=== PATIENT | female | born 1970 | race Caucasian/White ===

== ENCOUNTER 2019-01-23 20:51 | Emergency (ER) | payer OTHER ==
[~2019-01-23] VITALS: Ht 149.9 cm; Wt 64.0 kg
[2019-01-23 21:05] VITALS: Ht 149.9 cm; Wt 64.0 kg
[2019-01-23 21:46] LABS: UA SPECIFIC GRAVITY 1.015 (1.005-1.035); microscopic required? YES; urine erythrocyte 2+ (NEGATIVE)
[2019-01-23 21:49] LABS: BASOPHIL % 0.3 % (0-2); PLATELET COUNT 216 x10^3mcL (130-400); RED CELL DISTRIBUTION WIDTH 12.8 % (11.5-14.5)
[2019-01-23 21:58] LABS: ALBUMIN 3.9 g/dL (3.4-5.0); ALKALINE PHOSPHATASE 107 U/L (46-116); ALT/SGPT 34 U/L (14-59); AST/SGOT 25 U/L (15-37); BILIRUBIN TOTAL 0.2 mg/dL (0.20-1.00); CALCIUM 8.5 mg/dL (8.5-10.1); CARBON DIOXIDE 31.2 mmol/L (21-32); CHLORIDE SERUM 102 mmol/L (98-107); CREATININE SERUM 0.7 mg/dL (0.6-1.0); GFR1 > 60 mL/min; GLUCOSE SERUM 181 mg/dL (74-106); SODIUM SERUM 141 mmol/L (136-145); TOTAL PROTEIN, SERUM 7.8 g/dL (6.4-8.2)
[2019-01-23 22:01] LABS: LIPASE 1554 IU/L (73-393)
[2019-01-23 22:02] LABS: POTASSIUM SERUM 2.7 mmol/L (3.5-5.1)
[2019-01-24 00:19] LABS: HDL CHOLESTEROL 37 mg/dL (40-60)
[2019-01-24 00:21] LABS: CHOLESTEROL 252 mg/dL (<200); CHOLESTEROL/HDL RATIO 6.8; TRIGLYCERIDES 562 mg/dL (<150)
[2019-01-24 03:09] VITALS: BP 121/76
== END 2019-01-24 03:09 | disposition short-term general hospital (02) ==
LOC: ED 20:51
PROVIDERS: Emergency Medicine
DX: K85.90 Acute pancreatitis without necrosis or infection, unspecified (principal); E87.6 Hypokalemia; E78.1 Pure hyperglyceridemia
CPT/HCPCS: J1885; J2270; J2405; J2543; J3480; J7030